=== PATIENT | male | born 1950 | race Caucasian/White ===

== ENCOUNTER 2018-02-20 16:11 | Emergency (ER) | payer OTHER ==
[2018-02-20 17:55] VITALS: BP 131/75
--- NOTE | 2018-02-20 18:08 | UC ---
Respiratory Complaint HPI - HPI Summary HPI Summary: 67 yo male with <48 hr hx of f/c, nasal congestion and productive cough no CP or SOB no n/v/d - History of Current Complaint Chief Complaint: UCGeneralIllness Stated Complaint: FEVER Time Seen by Provider: 02/20/18 17:45 Hx Obtained From: Patient Onset/Duration: Sudden Onset, Gradual Onset, Lasting Minutes Timing: Constant Severity Initially: Mild Severity Currently: Moderate Pain Intensity: 2 Pain Scale Used: 0-10 Numeric Character: Cough: Nonproductive Aggravating Factors: Exertion - talking Associated Signs And Symptoms: Positive: Fever, Chills, Nasal Congestion - Allergies/Home Medications Allergies/Adverse Reactions: Allergies Allergy/AdvReac Type Severity Reaction Status Date / Time No Known Allergies Allergy Verified 02/20/18 17:50 PMH/Surg Hx/FS Hx/Imm Hx Previously Healthy: Yes Respiratory History: Pneumonia - as child - Surgical History Surgical History: Yes Surgery Procedure, Year, and Place: VENTRAL HERNIA REPAIR - Family History Known Family History: Negative: Other - NO JOINT LAXITY - Social History Alcohol Use: Weekly Substance Use Type: None Smoking Status (MU): Never Smoked Tobacco Review of Systems Constitutional: Fever, Chills, Fatigue Skin: Negative Eyes: Negative ENT: Nasal Discharge, Sinus Congestion Respiratory: Cough Cardiovascular: Negative Gastrointestinal: Negative Genitourinary: Negative Motor: Negative Neurovascular: Negative Musculoskeletal: Negative Neurological: Negative Psychological: Negative Is Patient Immunocompromised?: No All Other Systems Reviewed And Are Negative: Yes Physical Exam Triage Information Reviewed: Yes Appearance: Well-Appearing, No Pain Distress, Well-Nourished Vital Signs: Initial Vital Signs Temp 98.7 F 02/20/18 17:50 Pulse 76 02/20/18 17:50 Resp 16 02/20/18 17:50 BP 131/75 02/20/18 17:50 Pulse Ox 99 02/20/18 17:50 Vital Signs Reviewed: Yes Eyes: Positive: Conjunctiva Clear ENT: Positive: Hearing grossly normal, Nasal congestion, TMs normal, Hoarse voice. Negative: Nasal drainage, Tonsillar swelling, Tonsillar exudate, Trismus , Muffled voice Neck: Positive: Supple Respiratory: Positive: Lungs clear, Normal breath sounds, No respiratory distress, No accessory muscle use, Rhonchi - with forced expiration Cardiovascular: Positive: RRR, No Murmur Musculoskeletal: Positive: ROM Intact, No Edema Neurological: Positive: Alert Psychological Exam: Normal Skin: Positive: rashes UC Diagnostic Evaluation - Laboratory Pertinent Lab Values Are: WNL - flu (-) O2 Sat by Pulse Oximetry: 99 - normal/not hypoxic Respiratory Course/Dx - Differential Dx/Diagnosis Provider Diagnoses: acute bronchitis Discharge - Sign-Out/Discharge Documenting (check all that apply): Discharge - Discharge Plan Condition: Stable Disposition: HOME Prescriptions: Amoxicillin PO (*) [Amoxicillin 875 MG (*)] 875 mg PO BID #14 tab Patient Education Materials: Acute Bronchitis (ED) Referrals: Daniela Majano [Primary Care Provider] - If Needed Additional Instructions: recheck in 3-4 days if not improved - Billing Disposition and Condition Condition: STABLE Disposition: HOME
== END 2018-02-20 18:27 | disposition home or self-care (01) ==
LOC: UCCORT 16:11
DX: J20.9 Acute bronchitis, unspecified (principal); R09.81 Nasal congestion
CPT/HCPCS: 87502; 99212; G0463